=== PATIENT | female | born 2005 | race Caucasian/White ===

== ENCOUNTER → 2023-01-15 15:28 | Outpatient (CLI) | payer BC, SELFPAY ==
--- NOTE | ~2023-01-15 | XR_ITS ---
XR_[id number]_CR DATE: 01/15/2023 15:49 INDICATION: Neck pain for years, without injury. TECHNIQUE: AP, open-mouth, lateral views COMPARISON: None FINDINGS: There is straightening of the cervical spine which may be due to muscle spasm. There is marilyn roximately 1.3 mm anterolisthesis at C4-5. C1 and C2 are normally aligned and the odontoid process is intact. No fracture or dislocation or lock ed facet or prevertebral soft tissue swelling is detected. Cervical interspaces are well preserved. IMPRESSION: Straightening of the cervical spine, which may be due to muscle spasm 1.3 mm anterolisthesis at C4-5 Reviewed, dictated and finalized at [facility]. Reviewed, dictated and finalized at [facility]. IMPRESSION: Straightening of the cervical spine, which may be due to muscle spa sm 1.3 mm anterolisthesis at C4-5
--- NOTE | ~2023-01-15 | XR_ITS ---
XR thoracic spine 3V DATE: 01/15/2023 15:50 INDICATION: Mid thoracic pain for years without injury TECHNIQUE: AP, lateral and swimmer standing views COMPARISON: None FINDINGS: There is minimal dextroscoliosis of the upper thoracic spine. No fracture or dislocation or bone destruction. The thoracic pedicles are intact. No paraspinal soft tissue thickening. IMPRESSION: Minimal dextroscoliosis of upper thoracic spine Reviewed, dictated and finalized at [facility].
== END ==
PROVIDERS: PCP Family Medicine; Visit Provider Family Medicine
DX: M54.2 Cervicalgia (principal); M54.6 Pain in thoracic spine
CPT/HCPCS: 72040; 72072

== ENCOUNTER 2023-07-22 09:05 | Outpatient (CLI) | payer BC, SELFPAY ==
[2023-07-22 18:43] LABS: Hematocrit 42.5 % (37.0-47.0); Hemoglobin 13.3 g/dL (12.0-15.0); Mean Corpuscular HGB Conc 31.3 g/dl (32-36); Mean Corpuscular Hemoglobin 28.7 pg (26-34); Mean Corpuscular Volume 91.8 fl (80-100); Mean Platelet Volume 10.2 fl (7.4-10.4); Platelet Count Result 428 k/mm3 (150-375); Red Blood Count 4.63 M/mm3 (4.2-5.4); Red Cell Distribution Width 12.4 % (11.5-14.5); White Blood Count 7.4 K/mm3 (4.5-10.0)
[2023-07-22 19:11] LABS: Alanine Aminotransferase 25 U/L (6-35); Albumin Level 4.5 g/dL (3.5-5.1); Alkaline Phosphatase 73 U/L (38-126); Anion Gap 8 mmol/L (8-16); Aspartate Amino Transferase 27 U/L (14-36); Bilirubin,Total 0.6 mg/dL (0.2-1.3); Blood Urea Nitrogen 15 mg/dL (7-17); Calcium 9.1 mg/dL (8.4-10.2); Carbon Dioxide 26 mmol/L (22-30); Chloride 105 mmol/L (98-107); Estimated Glomerular Filt Rate > 60; Glucose 84 mg/dL (65-110); Potassium 4.3 mmol/L (3.4-5.0); Sodium 139 mmol/L (137-145)
== END 2023-07-22 09:06 | disposition home or self-care (01) ==
LOC: ANHGOSHLAB 09:08
PROVIDERS: PCP Family Medicine; Visit Provider Family Medicine
DX: R03.0 Elevated blood-pressure reading, without diagnosis of hypertension (principal); E66.9 Obesity, unspecified; Z79.899 Other long term (current) drug therapy
CPT/HCPCS: 36415; 80053; 84443; 85027